=== PATIENT | female | born 1950 | race Caucasian/White ===

== ENCOUNTER 2016-08-16 11:34 | Emergency (ER) | payer MEDICARE ==
[2016-08-16] MEDS ORDERED: SODIUM CHLORIDE 0.9% 1,000 ML ONE (13:59)
[2016-08-16] MEDS ORDERED: METOPROLOL TART 25 MG TAB ONE (15:55)
== END 2016-08-16 17:13 | disposition home or self-care (01) ==
LOC: ER 11:34
DX: I47.1 Supraventricular tachycardia (principal)
CPT/HCPCS: 36415; 71010; 80053; 82553; 83880; 84484; 85025; 93005; 96360; 96361